=== PATIENT | male | born 1985 | race Caucasian/White ===

== ENCOUNTER 2023-06-26 21:29 | Emergency (ER) | payer SELFPAY ==
[2023-06-26] VITALS (18 sets, daily range): BP systolic 140; BP diastolic 80; PULSE 60–81; RESP 9–27; TEMP 36.6; O2SAT 97–999; BMI 33.6
--- NOTE | 2023-06-26 21:55 | ED.SOB1 ---
HPI - SOB/Dyspnea General Chief Complaint: Shortness of Breath/Dyspnea Stated Complaint: CHEST PAIN Time Seen by Provider: 06/26/23 21:52 Source: patient Mode of arrival: walk-in Limitations: no limitations History of Present Illness HPI Narrative: past history of pericarditis. Chronic laryngitis. Ex smoker of 2PPD. Now vapes. Presents complaining of tightness of his chest and back which reminds him of how he felt when he had pericarditis 10 years ago. Feels a little short of breath. No fever . Also feeling anxious bianka JAY elicited complaint: shortness of breath Related Data Home Medications Medication Instructions Recorded Confirmed No Known Home Medications 06/26/23 06/26/23 Allergies Allergy/AdvReac Type Severity Reaction Status Date / Time No Known Drug Allergies Allergy Verified 06/26/23 21:38 Review of Systems ROS Status of ROS 10 or more systems reviewed and unremarkable except as noted in history and below [facility] Social History Smoking status: Current every day smoker Exam Constitutional Vital Signs, click to edit/add: Last Vital Signs Temp 97.8 F 06/26/23 21:31 Pulse 63 06/26/23 22:20 Resp 14 06/26/23 22:20 BP 140/80 06/26/23 21:38 Pulse Ox 999 H 06/26/23 22:17 O2 Del Method Room Air 06/26/23 22:17 Common normals: no apparent distress, average body habitus, oriented x3, no limitations, healthy appearing, alert and well nourished [facility] Common normals: normocephalic and head/scalp atraumatic Other: hoarse voice Eye Common normals: PERRL, EOMs intact bilaterally and conjunctivae normal Chest Common normals: inspection of chest normal and palpation of chest normal Respiratory Common normals: normal respiratory effort, no retractions, no use of accessory muscles and clear to auscultation bilaterally Cardio Common normals: regular rate, regular rhythm, S1 normal heart sound and S2 normal heart sound GI Common normals: Normal to inspection, nondistended, normoactive bowel sounds present, soft to palpation and non-tender Extremity Common normals: normal to inspection and full ROM Neuro Common normals: oriented x3, CN's II-XII intact bilaterally, moves all extremities and no focal motor deficits Psych Appearance: grossly normal Course Vital Signs Vital signs: Vital Signs Temperature 97.8 F 06/26/23 21:31 Pulse Rate 61 06/26/23 21:31 Respiratory Rate 26 H 06/26/23 21:31 Blood Pressure 140/80 06/26/23 21:31 Pulse Oximetry 98 06/26/23 21:31 Oxygen Delivery Method Room Air 06/26/23 21:31 Temperature 97.8 F 06/26/23 21:31 Pulse Rate 63 06/26/23 22:20 Respiratory Rate 14 06/26/23 22:20 Blood Pressure 140/80 06/26/23 21:38 Pulse Oximetry 999 H 06/26/23 22:17 Oxygen Delivery Method Room Air 06/26/23 22:17 MDM - SOB/Dyspnea MDM Narrative Medical decision making narrative: patient past history of smoking 2PPD. now vapes. states past history of pericarditis 10 years ago. States chest feels tight reminiscent of when he was diagnosed with pericarditis. EKG is normal without signs of pericarditis. labs also neg for any suggestion of pericarditis and cxray normal as well. Patient treated with Duoneb and states this help his chest tightness to improve.Will plan discharge home with prednisone and an albuterol inhaler and recommend he follow up with his family doctor Lab Data Labs: Lab Results 06/26/23 06/26/23 Range/Units 22:03 22:12 WBC 5.2 (4.0-11.0) 10^3/uL RBC 4.30 L (4.70-6.10) 10^6/uL Hgb 13.2 L (14.0-18.0) g/dL Hct 38.0 L (42.0-54.0) % MCV 88.4 (80.0-94.0) fL MCH 30.7 (25.9-34.0) pg MCHC 34.7 (29.9-35.2) g/dL RDW 12.6 (11.0-15.0) % Plt Count 208 (150-450) 10^3/uL MPV 10.6 (9.5-13.5) fL Neut % (Auto) 58.0 (43.0-75.0) % Lymph % (Auto) 32.2 (20.5-60.0) % [place] % (Auto) 6.9 (1.7-12.0) % Eos % (Auto) 1.9 (0.9-7.0) % Baso % (Auto) 0.6 (0.2-2.0) % Neut # (Auto) 3.0 (1.4-6.5) 10^3/uL Lymph # (Auto) 1.7 (1.2-3.8) 10^3/uL [place] # (Auto) 0.4 (0.3-0.8) 10^3/uL Eos # (Auto) 0.1 (0.0-0.7) 10^3/uL Baso # (Auto) 0.0 (0.0-0.1) 10^3/uL Abs Immat Gran (auto) 0.02 (0.00-0.03) 10^3/uL Imm/Tot Granulo (auto) 0.4 (0.0-0.5) % ESR 19 H (<=15) mm/hr D-Dimer <0.19 (<=0.59) mg/L FEU Sodium 139 (136-145) mmol/L Potassium 3.7 (3.5-5.1) mmol/L Chloride 104 (98-107) mmol/L Carbon Dioxide 24.4 (21.0-32.0) mmol/L Anion Gap 14.3 BUN 10.0 (7.0-18.0) mg/dL Creatinine 0.87 (0.70-1.30) mg/dL Est GFR ( Amer) >60 (>=60) Est GFR (Non-Af Amer) >60 (>=60) BUN/Creatinine Ratio 11.5 Glucose 94 (74-106) mg/dL Calcium 8.9 (8.5-10.1) mg/dL Troponin I High Sens 5.0 (4.0-76.1) pg/mL C-Reactive Protein <0.30 (<=0.30) mg/dL Adenovirus (PCR) Not detected (NOT DETECTE) C. pneumoniae DNA (PCR) Not detected (NOT DETECTE) Coronavirus Type OC43 Not detected (NOT DETECTE) Coronavirus Type HKU1 Not detected (NOT DETECTE) Coronavirus Type 229E Not detected (NOT DETECTE) Coronavirus Type NL63 Not detected (NOT DETECTE) Human Metapneumovir PCR Not detected (NOT DETECTE) M. pneumoniae (PCR) Not detected (NOT DETECTE) Parainfluenza PCR Not detected (NOT DETECTE) Parainfluenza 2 (PCR) Not detected (NOT DETECTE) Parainfluenza 3 (PCR) Not detected (NOT DETECTE) Parainfluenza 4 (PCR) Not detected (NOT DETECTE) RSV (RT-PCR) Not detected (NOT DETECTE) Entero/Rhino (PCR) Not detected (NOT DETECTE) SARS-CoV-2 (PCR) Not detected (NOT DETECTE) Bordetella pertussis (PCR) Not detected (NOT DETECTE) B parapertussis DNA PCR Not detected (NOT DETECTE) Influenza Type A (PCR) Not detected (NOT DETECTE) Influenza Type B (PCR) Not detected (NOT DETECTE) Imaging Data Chest x-ray: Radiologist's impression: cipriano; Physician,Non-Staff Anitra~ [facility] [place] [id number] Patient Name: BARRON ESPINOSA MRN: [facility]:[id number] date: 1985 Sex: M Assigned Patient Location: ER Current Patient Location: ER Accession/Order Number: [id number] Exam Date: 06/26/2023 22:40 Report Date: 06/26/2023 22:54 At the request of: SYD LIANG Procedure: XR chest 2V EXAMINATION: XR chest 2V HISTORY: Chest tightness and dyspnea COMPARISON: None. TECHNIQUE: PA and lateral chest x-rays FINDINGS: The lung parenchyma is free of consolidation or infiltrate. No pneumothorax or pleural effusion. The cardiac, mediastinal and hilar contours are normal. Chronic comminuted displaced and shortened unhealed fracture of the left clavicle diaphysis. XR/XR chest 2V IMPRESSION: No acute cardiopulmonary abnormality. Electronically authenticated by: ANITHA LUCAS Date: 06/26/2023 22:54 Dictated By: Anitha Lucas M.D. Signed By: 06/26/23 3843 Discharge Plan Discharge Chief Complaint: Shortness of Breath/Dyspnea Clinical Impression: Acute bronchospasm Patient Disposition: Home, Self-Care Prescriptions / Home Meds: No Action No Known Home Medications Instructions: Bronchospasm (ED) Stand Alone Forms: Portal Instructions Referrals: Physician,Non-Staff, MD [Primary Care Provider] - 1 week
--- NOTE | 2023-06-26 21:58 | ECG_ITS ---
The [facility] Test Date: 2023-06-26 Pat Name: BARRON ESPINOSA Department: Room: - Gender: Male Rn Integrity: : 1985 Requested By: [id number] Order Number: [id number] Reading MD: COSME COVINGTON Measurements Intervals [place] Rate: 65 P: 51 VT: 152 QRS: 40 QRSD: 96 T: 60 QT: 390 QTc: 401 Interpretive Statements 1100 Sinus rhythm 9110 normal ECG No previous ECG available for comparison Electronically Signed On 06-28-2023 7:10:49 EST by COSME COVINGTON
--- NOTE | 2023-06-26 21:58 | XR_ITS ---
The [address] [address] Patient Name: BARRON ESPINOSA MRN: [id number] date: 1985 Sex: M Assigned Patient Location: ER Current Patient Location: ER Accession/Order Number: [id number] Exam Date: 06/26/2023 22:40 Report Date: 06/26/2023 22:54 At the request of: SYD LIANG Procedure: XR chest 2V EXAMINATION: XR chest 2V HISTORY: Chest tightness and dyspnea COMPARISON: None. TECHNIQUE: PA and lateral chest x-rays FINDINGS: The lung parenchyma is free of consolidation or infiltrate. No pneumothorax or pleural effusion. The cardiac, mediastinal and hilar contours are normal. Chronic comminuted displaced and shortened unhealed fracture of the left clavicle diaphysis. XR/XR chest 2V IMPRESSION: No acute cardiopulmonary abnormality. Electronically authenticated by: ANITHA GOOD Date: 06/26/2023 22:54
[2023-06-26] MEDS: IPRATROPIUM/ALBUTEROL SULFATE 3 ML AMPUL.NEB IH (22:17)
[2023-06-26 22:19] LABS: Basophils Percent Auto 0.6 % (0.2-2.0); Eosinophils Absolute Auto 0.1 10^3/uL (0.0-0.7); Eosinophils Percent Auto 1.9 % (0.9-7.0); Hemoglobin 13.2 g/dL (14.0-18.0); Immature Granulocytes Abs Auto 0.02 10^3/uL (0.00-0.03); Immature Granulocytes Pct Auto 0.4 % (0.0-0.5); Lymphocytes Absolute Auto 1.7 10^3/uL (1.2-3.8); Lymphocytes Percent Auto 32.2 % (20.5-60.0); Mean Corpuscular HGB Conc 34.7 g/dL (29.9-35.2); Mean Corpuscular Hemoglobin 30.7 pg (25.9-34.0); Mean Corpuscular Volume 88.4 fL (80.0-94.0); Mean Platelet Volume 10.6 fL (9.5-13.5); Monocytes Absolute Auto 0.4 10^3/uL (0.3-0.8); Monocytes Percent Auto 6.9 % (1.7-12.0); Platelet Count 208 10^3/uL (150-450); Red Cell Distribution Width 12.6 % (11.0-15.0); White Blood Count 5.2 10^3/uL (4.0-11.0)
[2023-06-26 22:21] LABS: Adenovirus NOT DETECTED (NOT DETECTE); Bordetella parapertussis NOT DETECTED (NOT DETECTE); Coronavirus 229E NOT DETECTED (NOT DETECTE); Coronavirus HKU1 NOT DETECTED (NOT DETECTE); Coronavirus NL63 NOT DETECTED (NOT DETECTE); Coronavirus OC43 NOT DETECTED (NOT DETECTE); Human Metapneumovirus NOT DETECTED (NOT DETECTE); Human Rhinovirus/Enterovirus NOT DETECTED (NOT DETECTE); Influenza A NOT DETECTED (NOT DETECTE); Influenza B NOT DETECTED (NOT DETECTE); Mycoplasma pneumoniae NOT DETECTED (NOT DETECTE); Parainfluenza Virus 1 NOT DETECTED (NOT DETECTE); Parainfluenza Virus 2 NOT DETECTED (NOT DETECTE); Parainfluenza Virus 3 NOT DETECTED (NOT DETECTE); Parainfluenza Virus 4 NOT DETECTED (NOT DETECTE); Respiratory Syncytial Virus NOT DETECTED (NOT DETECTE); SARS-CoV-2 NOT DETECTED (NOT DETECTE)
[2023-06-26 22:30] LABS: Erythrocyte Sedimentation Rate 19 mm/hr (<=15)
[2023-06-26 22:47] LABS: Anion Gap 14.3; BUN Creatinine Ratio 11.5; Calcium 8.9 mg/dL (8.5-10.1); Carbon Dioxide 24.4 mmol/L (21.0-32.0); Chloride 104 mmol/L (98-107); Estimated GFR (African America >60 (>=60); Estimated GFR (Non-African Ame >60 (>=60); Glucose 94 mg/dL (74-106); Potassium 3.7 mmol/L (3.5-5.1); Sodium 139 mmol/L (136-145)
[2023-06-26 22:49] LABS: D Dimer <0.19 mg/L FEU (<=0.59)
[2023-06-26] MEDS: METHYLPREDNISOLONE SOD SUCC PF 125 MG/2 ML VIAL IVP (23:59)
[2023-06-27] VITALS: PULSE 78; RESP 21
[2023-06-27 00:01] VITALS: BP 121/79; PULSE 61; RESP 15
[2023-06-27] MEDS: ALBUTEROL SULFATE 200 PUFF/6.7 GM INHALER IH (00:05)
[2023-06-30 08:45] LABS: C Reactive Protein <0.50 mg/dL (<=0.50)
== END 2023-06-27 00:08 | disposition home or self-care (01) ==
PROVIDERS: Emergency Provider Internal Medicine
DX: J98.01 Acute bronchospasm (principal); R07.9 Chest pain, unspecified; F17.290 Nicotine dependence, other tobacco product, uncomplicated
CPT/HCPCS: 0202U; 36415; 71046; 80048; 84484; 85025; 85378; 85652; 86140; 93005; 94640; 96374; 99284; J2930

== ENCOUNTER 2023-12-30 03:51 | Emergency (ER) | payer SELFPAY ==
[2023-12-30] VITALS (10 sets, daily range): BP systolic 137–157; BP diastolic 98–105; PULSE 58–92; TEMP 36.6; O2SAT 99; BMI 33.6
--- NOTE | 2023-12-30 04:12 | ED_ITS ---
HPI - SOB/Dyspnea General Chief Complaint: Shortness of Breath/Dyspnea Stated Complaint: SOB Time Seen by Provider: 12/30/23 04:08 Source: patient Mode of arrival: walk-in History of Present Illness HPI Narrative: presents complaining of pain right chest and neck for a couple of days on and off. This time present all day yesterday and continues this AM. also feels short of breath. Voice is hoarse but states this s chronic. No fever or problem swallowing Related Data Home Medications ?Medication ?Instructions ?Recorded ?Confirmed No Known Home Medications 06/26/23 06/26/23 Allergies Allergy/AdvReac Type Severity Reaction Status Date / Time No Known Drug Allergies Allergy Verified 06/26/23 21:38 Review of Systems 2 ROS0 Status of ROS 10 or more systems reviewed and unremark able except as noted in history and below [facility] Social History Smoking status: Current every day smoker Exam Constitutional Vital Signs, click to edit/add: Last Vital Signs Temp 97.9 F 12/30/23 03:57 Pulse 58 L 12/30/23 04:30 Resp 16 12/30/23 04:30 BP 137/98 H 12/30/23 04:29 Pulse Ox 99 12/30/23 03:57 O2 Del Method Room Air 12/30/23 03:57 Common normals: no apparent distress, average body habitus, oriented x3, no limitations, healthy appearing, alert and well nourished Eye Common normals: PERRL and EOMs intact bilaterally Chest Chest images (male): 2 1. tender Respiratory Common normals: normal respiratory effort, no retractions, no use of accessory muscles and clear to auscultation bilaterally Cardio Common normals: regular rate, regular rhythm, S1 normal heart sound and S2 normal heart sound GI Common normals: Normal to inspection, nondistended, normoactive bowel sounds present, soft to palpation and non-tender Extremity Common normals: normal to inspection and full ROM Neuro Common normals: oriented x3, CN's II-XII intact bilaterally, moves all extremities, no focal motor deficits and no sensory deficits noted Psych Appearance: grossly normal Course Vital Signs Vital signs: Vital Signs Temperature 97.9 F 12/30/23 03:57 Pulse Rate 92 H 12/30/23 03:57 Respiratory Rate 26 H 12/30/23 03:57 Blood Pressure 157/105 H 12/30/23 03:57 Pulse Oximetry 99 12/30/23 03:57 Oxygen Delivery Method Room Air 12/30/23 03:57 Temperature 97.9 F 12/30/23 03:57 Pulse Rate 58 L 12/30/23 04:30 Respiratory Rate 16 12/30/23 04:30 Blood Pressure 137/98 H 12/30/23 04:29 Pulse Oximetry 99 12/30/23 03:57 Oxygen Delivery Method Room Air 12/30/23 03:57 MDM - SOB/Dyspnea MDM Narrative Medical decision making narrative: patient presents with atypical chest pain right upper chest just beneath his clavicle with similar pain adjoining neck area. sites tender. No swelling. treated with solumedrol and Toradol with resolution of pain. Paitnt's sensation of dyspnea also resolved. d-dimer and troponin neg. chest xray neg patient discharged home in improved condition to follow up with his doctor Lab Data Labs: Lab Results 12/30/23 Range/Units 04:25 WBC 10.8 (4.0-11.0) 10^3/uL RBC 4.82 (4.70-6.10) 10^6/uL Hgb 14.9 (14.0-18.0) g/dL Hct 42.6 (42.0-54.0) % MCV 88.4 (80.0-94.0) fL MCH 30.9 (25.9-34.0) pg MCHC 35.0 (29.9-35.2) g/dL RDW 12.3 (11.0-15.0) % Plt Count 304 (150-450) 10^3/uL MPV 10.5 (9.5-13.5) fL Neut % (Auto) 73.7 (43.0-75.0) % Lymph % (Auto) 19.2 L (20.5-60.0) % [place] % (Auto) 5.9 (1.7-12.0) % Eos % (Auto) 0.5 L (0.9-7.0) % Baso % (Auto) 0.5 (0.2-2.0) % Neut # (Auto) 8.0 H (1.4-6.5) 10^3/uL Lymph # (Auto) 2.1 (1.2-3.8) 10^3/uL [place] # (Auto) 0.6 (0.3-0.8) 10^3/uL Eos # (Auto) 0.1 (0.0-0.7) 10^3/uL Baso # (Auto) 0.1 (0.0-0.1) 10^3/uL Abs Immat Gran (auto) 0.02 (0.00-0.03) 10^3/uL Imm/Tot Granulo (auto) 0.2 (0.0-0.5) % D-Dimer 0.20 (<=0.59) mg/L FEU Sodium 138 (136-145) mmol/L Potassium 3.5 (3.5-5.1) mmol/L Chloride 102 (98-107) mmol/L Carbon Dioxide 24.3 (21.0-32.0) mmol/L Anion Gap 15.2 BUN 9.0 (7.0-18.0) mg/dL Creatinine 1.20 (0.70-1.30) mg/dL Est GFR ( Amer) >60 (>=60) Est GFR (Non-Af Amer) >60 (>=60) BUN/Creatinine Ratio 7.5 Glucose 93 (74-106) mg/dL Calcium 10.1 (8.5-10.1) mg/dL Troponin I High Sens <4.0 L (4.0-76.1) pg/mL Imaging Data Chest x-ray: Radiologist's impression: ITS Impressions Chest X-Ray 12/30/23 04:14 IMPRESSION: There is no acute cardiopulmonary process. Stable old displaced fracture of the left clavicle. Electronically authenticated by: HERON WALL Date: 12/30/2023 05:07 Discharge Plan Discharge Stand Alone Forms: Portal Instructions Chief Complaint: Shortness of Breath/Dyspnea Clinical Impression: Atypical chest pain Patient Disposition: Home, Self-Care Prescriptions / Home Meds: No Action No Known Home Medications Print Language: Swazi Instructions: Chest Wall Pain (ED) Referrals: Physician,Non-Staff, MD [Primary Care Provider] - 1 week
--- NOTE | 2023-12-30 04:14 | XR_ITS ---
The [address] [address] Patient Name: BARRON ESPINOSA MRN: [id number] date: 1985 Sex: M Assigned Patient Location: ER Current Patient Location: ER Accession/Order Number: [id number] Exam Date: 12/30/2023 04:35 Report Date: 12/30/2023 05:07 At the request of: SYD LIANG Procedure: XR chest 2V EXAM: XR chest 2V HISTORY: Shortness of breath ; technologist notes state shortness of breath for 2 days and sharp pain to the right upper chest and right shoulder when taking a deep breath. COMPARISON: Chest radiograph dated 06/26/2023. TECHNIQUE: Frontal and lateral views of the chest performed. FINDINGS: The trachea is midline. The cardiomediastinal silhouette and hilar shadows are within normal limits. There is no consolidation, pleural effusion or pulmonary vascular congestion. There is no pneumothorax. There is no acute osseous abnormality. There is a stable old displaced fracture of the left clavicle. XR/XR chest 2V IMPRESSION: There is no acute cardiopulmonary process. Stable old displaced fracture of the left clavicle. Electronically authenticated by: HERON WALL Date: 12/30/2023 05:07
--- NOTE | 2023-12-30 04:14 | ECG_ITS ---
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
[2023-12-30 04:34] LABS: Basophils Absolute Auto 0.1 10^3/uL (0.0-0.1); Basophils Percent Auto 0.5 % (0.2-2.0); Eosinophils Absolute Auto 0.1 10^3/uL (0.0-0.7); Eosinophils Percent Auto 0.5 % (0.9-7.0); Hematocrit 42.6 % (42.0-54.0); Hemoglobin 14.9 g/dL (14.0-18.0); Immature Granulocytes Abs Auto 0.02 10^3/uL (0.00-0.03); Immature Granulocytes Pct Auto 0.2 % (0.0-0.5); Lymphocytes Absolute Auto 2.1 10^3/uL (1.2-3.8); Lymphocytes Percent Auto 19.2 % (20.5-60.0); Mean Corpuscular Hemoglobin 30.9 pg (25.9-34.0); Mean Corpuscular Volume 88.4 fL (80.0-94.0); Mean Platelet Volume 10.5 fL (9.5-13.5); Monocytes Absolute Auto 0.6 10^3/uL (0.3-0.8); Monocytes Percent Auto 5.9 % (1.7-12.0); Neutrophils Percent Auto 73.7 % (43.0-75.0); Platelet Count 304 10^3/uL (150-450); Red Blood Count 4.82 10^6/uL (4.70-6.10); Red Cell Distribution Width 12.3 % (11.0-15.0); White Blood Count 10.8 10^3/uL (4.0-11.0)
[2023-12-30] MEDS: KETOROLAC TROMETHAMINE 30 MG/ML VIAL IVP (04:42)
[2023-12-30] MEDS: METHYLPREDNISOLONE SOD SUCC PF 125 MG/2 ML VIAL IVP (04:42)
[2023-12-30 04:53] LABS: Anion Gap 15.2; BUN Creatinine Ratio 7.5; Calcium 10.1 mg/dL (8.5-10.1); Carbon Dioxide 24.3 mmol/L (21.0-32.0); Chloride 102 mmol/L (98-107); Estimated GFR (African America >60 (>=60); Estimated GFR (Non-African Ame >60 (>=60); Glucose 93 mg/dL (74-106); Potassium 3.5 mmol/L (3.5-5.1); Sodium 138 mmol/L (136-145); Troponin I High Sensitivity <4.0 pg/mL (4.0-76.1)
== END 2023-12-30 05:31 | disposition home or self-care (01) ==
PROVIDERS: Emergency Provider Internal Medicine
DX: R07.89 Other chest pain (principal); F17.200 Nicotine dependence, unspecified, uncomplicated
CPT/HCPCS: 36415; 71046; 80048; 84484; 85025; 85378; 93005; 96374; 96375; 99285; J2919